=== PATIENT | female | born 1985 | race Caucasian/White ===

== ENCOUNTER 2021-11-15 21:35 | Emergency (ER) | payer MEDICAID, SELFPAY ==
[2021-11-15 21:37] VITALS: BP 122/73; PULSE 76; RESP 18; TEMP 37.1; O2SAT 97; BMI 39.1
--- NOTE | 2021-11-15 21:56 | W.ED.WOUNDLC ---
HPI - Wound/Laceration General: Chief Complaint: Extremity Injury, Upper Stated Complaint: rt hand bleeding Time Seen by Provider: 11/15/21 21:55 Source: patient Mode of arrival: ambulatory Limitations: no limitations History of Present Illness: HPI narrative: Patient is a 35-year-old female who presents to ED today with complaints of skin avulsions to her right fourth and fifth digits that she sustained while using a mandolin to cut sada. Onset (ago): hour(s) Extremity Location: Right: hand Place: home Patient tetanus UTD: No (reports it was over 7 yrs ago) Context: accidental Associated symptoms: Reports no associated symptoms Review of Systems Musc: Reports: extremity pain (R 4-5 digits) Skin/Breast: Reports: other (skin avulsions) Neuro: Denies: numbness in extremities or sensory changes PFS ED PFSH: Medical History Anxiety and depression Surgical History No pertinent past surgical history Family History Mother Anxiety Depression PTSD (post-traumatic stress disorder) Borderline personality disorder Social History Smoking and tobacco status: former smoker Second hand smoke exposure: No Alcohol intake: current Alcohol intake frequency: few times a month Alcohol type: beer Adopted: No Caregiver/support person: No Lives independently: Yes Household members: children Housing: House Marital status: Number of children: 2 Highest education level completed: Bachelor's Degree service: No Current occupational status: student Pets and animals: Yes Pets & animals: cat(s) History of recent travel: No Sexually active: No Current gender identity: Female Special faheem needs: No Physical Exam Const: COMMON NORMALS: no acute distress, patient oriented x3, no limitations and alert GENERAL APPEARANCE: cooperative Extremity: GENERAL: Yes normal exam except as noted OTHER: pt has small (less than 1cm) fairly superficial skin avulsions to 4-5 digits (one to each digit) near palmar pads that are oozing but are easily controllable with pressure; there is nothing to repair at this time; avulsions are not deep enough to involve bone/tendon Neuro: COMMON NORMALS: patient oriented x3, moves all extremities, no focal motor deficits and no sensory deficits noted SENSORIUM/ORIENTATION: Yes alert Skin: NARRATIVE SKIN EXAM: see extremity assessment; otherwise normal skin findings Course Vital Signs: Vital signs: Vital Signs Temperature 98.7 F 11/15/21 21:37 Pulse Rate 76 11/15/21 21:37 Respiratory Rate 18 11/15/21 21:37 Blood Pressure 122/73 11/15/21 21:37 Pulse Oximetry 97 11/15/21 21:37 MDM - Wound/Laceration MDM Narrative: Medical decision making narrative: Wounds copiously irrigated. Surgicel and compression dressings placed to help with oozing. Tetanus updated. Discussed how wounds will have to heal by secondary intention. Wound care discussed at home. Discharge Plan Discharge Patient Disposition: Home Clinical Impression: Avulsion of skin of finger without complication Qualifiers: Encounter type: initial encounter Qualified Code(s): S61.209A - Unspecified open wound of unspecified finger without damage to nail, initial encounter Condition: Stable Prescriptions: No Action levonorgestrel-ethinyl estrad 0.15 mg-30 mcg (91) tablets,dose pack,3 month 1 tab PO DAILY RF: 0 multivitamin Tablet 1 tab PO DAILY RF: 0 alprazolam [Xanax] 0.5 mg tablet 0.5 mg PO DAILY PRN (Reason: anxiety) Qty: 20 RF: 0 citalopram [Celexa] 20 mg tablet 20 mg PO DAILY Qty: 90 RF: 1 Contrave 8-90 mg tablet extended release 2 tab PO BID 90 Days Qty: 360 RF: 1 Discharge Orders: Discharge ED (Routine); Ordered 11/15/21 Ordered By: Suma Myrick Referrals: Lisa Ibrahim DO [Primary Care Provider] - Patient Instructions: Skin Avulsion (ED) Activity Restrictions/Additional Instructions: As we discussed, unfortunately there is nothing repairable at this time and wounds will have to heal by secondary intention/ on their own . Keep wounds clean with warm soapy water several times daily. Monitor for signs of infection such as redness, swelling, purulent drainage-please seek medical re-evaluation if these occur. Continue to place firm pressure on wounds if they begin bleeding/oozing. If you are not able to get bleeding to stop after 20 minutes of firm pressure please return to the ED. Coding Level of Care Code ED Heat Treating Operator for Lashay Fwd Exam Expanded Problem Focused
[2021-11-15] MEDS: tetanus-diphtheria tox (adult) 0.5 mL SDV IM (22:10)
--- NOTE | 2021-11-15 22:19 | PC.NURSE ---
areas irrigated with saline then surgicil placed to both sites and pressure bandage applied. tD given to left deltiod aseptic technique, no bleeding at site, tolerated well.
== END 2021-11-15 22:22 | disposition home or self-care (01) ==
PROVIDERS: Emergency Provider Physician Assistant; PCP Family Medicine
DX: S61.204A Unspecified open wound of right ring finger without damage to nail, initial encounter (principal); S61.206A Unspecified open wound of right little finger without damage to nail, initial encounter; W26.0XXA Contact with knife, initial encounter; Z87.891 Personal history of nicotine dependence; Z23 Encounter for immunization
CPT/HCPCS: 90471; 90714; 99282

== ENCOUNTER → 2022-02-21 10:07 | Outpatient (BNVA) | payer MEDICAID, SELFPAY | PROVIDERS: PCP Family Medicine; Visit Provider Family Medicine | DX: F41.9 Anxiety disorder, unspecified (principal); F32.A Depression, unspecified; Z01.419 Encounter for gynecological examination (general) (routine) without abnormal findings; Z13.6 Encounter for screening for cardiovascular disorders; L73.2 Hidradenitis suppurativa; E66.9 Obesity, unspecified | CPT/HCPCS: 80053; 80061; 83036; 85025; 87624 ==

== ENCOUNTER → 2022-03-29 11:26 | Outpatient (BNVA) | payer MEDICAID, SELFPAY | PROVIDERS: PCP Family Medicine; Visit Provider Family Medicine | DX: F41.9 Anxiety disorder, unspecified (principal); F32.A Depression, unspecified; L73.2 Hidradenitis suppurativa; Z01.419 Encounter for gynecological examination (general) (routine) without abnormal findings; E66.9 Obesity, unspecified | CPT/HCPCS: 80048 ==

== ENCOUNTER → 2022-08-12 11:54 | Outpatient (BNVA) | payer MEDICAID, SELFPAY | PROVIDERS: PCP Family Medicine; Visit Provider Family Medicine | DX: R10.12 Left upper quadrant pain (principal) | CPT/HCPCS: 80053; 83690; 85025 ==

== ENCOUNTER → 2022-09-04 15:41 | Outpatient (BNVA) | payer MEDICAID, SELFPAY | PROVIDERS: PCP Family Medicine; Visit Provider Family Medicine | DX: R61 Generalized hyperhidrosis (principal) | CPT/HCPCS: 84443 ==